=== PATIENT | male | born 1990 | race Caucasian/White ===

== ENCOUNTER 2020-05-24 17:50 | Emergency (ER) | payer OTHER ==
--- NOTE | 2020-05-24 18:16 | EDM.PDOC ---
ED HPI GENERAL MEDICAL PROBLEM - General Chief Complaint: Laceration Stated Complaint: LACERATION ON NOSE Time Seen by Provider: 05/24/20 18:10 Source of Information: Reports: Patient History Limitations: Reports: No Limitations - History of Present Illness INITIAL COMMENTS - FREE TEXT/NARRATIVE: Patient comes emergency department today with an injury to his nose. Just prior to arrival the patient was working when the ladder came off the wall fell striking him on the nose. He did not get knocked out. He has some bleeding from the bridge of the nose where he has a laceration. He really did not have much bleeding coming from his nose. He has no head neck or back pain. He has no visual acuity changes. He is unsure of when his last tetanus shot was. Nose Pain Score (Numeric/FACES): 2 - Related Data Allergies Allergy/AdvReac Type Severity Reaction Status Date / Time No Known Allergies Allergy Verified 05/24/20 18:12 Home Meds: Home Meds . [No Known Home Meds] 05/24/20 [History] ED ROS GENERAL - Review of Systems Review Of Systems: Comprehensive ROS is negative, except as noted in HPI. ED EXAM, SKIN/RASH Exam: See Below Exam Limited By: No Limitations General Appearance: Alert, WD/WN, No Apparent Distress Eye Exam: Bilateral Eye: EOMI, Normal Inspection, PERRL Ears: Normal External Exam, Normal TMs Nose: Nasal Swelling (There is swelling on the mid aspect of the nasal bridge.), Other (There is a transverse linear laceration approximately 2 cm in length that does extend into the subcutaneous tissue over the mid bridge of the nose.). No: Nasal Deformity (Primarily there is swelling to the nasal bridge I do not overtly identify any deformity the nose appears midline) Throat/Mouth: Normal Inspection, Normal Lips, Normal Oropharynx, Normal Voice Head: Atraumatic (The rest of the head and face is atraumatic other than the swelling on the bridge of the nose.), Normocephalic, Facial Swelling (To the bridge of the nose). No: Sinus Tenderness Neck: Normal Inspection, Supple, Non-Tender Respiratory/Chest: No Respiratory Distress, No Accessory Muscle Use Cardiovascular: Normal Peripheral Pulses, Regular Rate, Rhythm Extremities: Normal Inspection Neurological: Alert, Oriented, CN II-XII Intact, Normal Cognition, No Motor/Sensory Deficits Psychiatric: Normal Affect Skin: Warm, Dry, Intact, Normal Color ED SKIN PROCEDURES - Laceration/Wound Repair Middle Midline Nose Appearance: Subcutaneous, Irregular Distal NVT: Neuro & Vascular Intact Anesthetic Type: Local Local Anesthesia - Lidocaine (Xylocaine): 1% Plain Skin Prep: Chlorhexidine (Hibiciens), Saline Saline Irrigation (cc's): 30 Exploration/Debridement/Repair: Wound Explored, In a Bloodless Field, Explored to Base, Multiple Flaps Aligned Closed with: Sutures Lac/Wound length In cm: 2.5 Suture Size: 6-0 Suture Type: Interrupted Sterile Dressing Applied: Nurse Tetanus Status Addressed: Yes Course - Vital Signs Last Recorded V/S: Last Vital Signs Temp 97.2 F 05/24/20 17:55 Pulse 95 05/24/20 17:55 Resp 18 05/24/20 17:55 BP 142/88 H 05/24/20 17:55 Pulse Ox 96 05/24/20 17:55 - Orders/Labs/Meds Orders: Active Orders 24 hr Category Date Time Status Vaccines to be Administered [RC] PER UNIT ROUTINE Care 05/24/20 18:12 Active Meds: Medications Discontinued Medications Generic Name Dose Route Start Last Admin Trade Name Eve PRN Reason Stop Dose Admin Diphtheria/Tetanus/Acell Pertussis 0.5 ml 05/24/20 18:12 05/24/20 18:19 Adacel IM 05/24/20 18:13 0.5 ml .ONCE ONE Administration Lidocaine HCl 30 ml 05/24/20 18:12 05/24/20 18:18 Xylocaine-Mpf 1% INJECT 05/24/20 18:13 30 ml ONETIME ONE Administration - Re-Assessments/Exams Free Text/Narrative Re-Assessment/Exam: 05/24/20 19:14 The patient refuses an xray, which is okay as even if broken it would not make a difference in management and it is not overly displaced at this time. Adacel updated. See procedure note. Departure - Departure Time of Disposition: 19:01 Disposition: Home, Self-Care 01 Clinical Impression: Laceration of nose Qualifiers: Encounter type: initial encounter Qualified Code(s): S01.21XA - Laceration without foreign body of nose, initial encounter - Discharge Information Instructions: Sutures, Tamar, or Adhesive Wound Closure, [id number], Facial Laceration, [id number] Referrals: PCP,None [Primary Care Provider] - Forms: ED Department Discharge Additional Instructions: Cleanse the wound twice daily with soap and water. Bacitracin and bandage until healed. Sutures out in 5 days in the clinic. If there is a scab on the laceration line in the morning half strength hydrogen peroxide and water to remove the scab and then bacitracin and bandage applied. Watch for signs of infection. Return to the ED if new or worsening symptoms. Recheck with PCP in the clinic 5 days for suture removal and recheck. Sooner if concerns. Sepsis Event Note (ED) - Evaluation Sepsis Screening Result: No Definite Risk - Focused Exam Vital Signs: Vital Signs Temp Pulse Resp BP Pulse Ox 05/24/20 17:55 97.2 F 95 18 142/88 H 96 - My Orders Last 24 Hours: My Active Orders 05/24/20 18:12 Vaccines to be Administered [RC] PER UNIT ROUTINE - Assessment/Plan Last 24 Hours: My Active Orders 05/24/20 18:12 Vaccines to be Administered [RC] PER UNIT ROUTINE
[2020-05-24] MEDS: Lidocaine 1% 30 ML SDV INJECT ONE (18:18)
[2020-05-24] MEDS: Diphtheria,Pertussis(Acell),Tetanus Vaccine 0.5 ML Syringe IM ONE (18:19)
== END 2020-05-24 19:08 | disposition home or self-care (01) ==
LOC: VM.ED 17:50
DX: S01.21XA Laceration without foreign body of nose, initial encounter (principal); Z23 Encounter for immunization; W11.XXXA Fall on and from ladder, initial encounter
CPT/HCPCS: 12011; 90471; 90715; 99282-25; 99283; J2001